=== PATIENT | female | born 1975 | race Caucasian/White ===

== ENCOUNTER 2018-09-19 08:07 | Day surgery (SDC) | payer OTHER ==
[2018-09-19] MEDS ORDERED: FENTAnyl 50 MCG/ML VIAL (10:29)
[2018-09-19] MEDS ORDERED: MIDAZOLAM 1 MG/ML 2 ML INJ ×3 (10:29)
== END 2018-09-19 11:42 | disposition home or self-care (01) ==
LOC: GIL 08:07
DX: R19.4 Change in bowel habit (principal); K29.30 Chronic superficial gastritis without bleeding; D12.5 Benign neoplasm of sigmoid colon; K64.8 Other hemorrhoids
CPT/HCPCS: 43239; 88305; 88312